=== PATIENT | female | born 1975 | race Asian ===

== ENCOUNTER 2024-09-08 00:57 | Emergency (ER) | payer MEDICAID, SELFPAY ==
[2024-09-08 01:01] VITALS: BMI 26.9
[2024-09-08 01:17] VITALS: BP 113/70; PULSE 92; RESP 20; TEMP 37.4; O2SAT 98
--- NOTE | 2024-09-08 01:35 | EDNOTE_ITS ---
ED SOB =RME/HPI General Chief Complaint: Shortness of Breath/Dyspnea Stated Complaint: SOB, COUGH, CHEST PAIN Time Seen by Provider: 09/08/24 01:16 Arrival date/time: 09/08/24 00:57 RME / HPI RME / HPI Narrative: 49-year-old female presents to the ED with a complaint of cough and shortness of breath. She was seen at [facility] on the and prescribed Tessalon Perles. She does not feel like she is improving. Related Data Previous Rx's ?Medication ?Instructions ?Recorded ondansetron 4 mg disintegrating 4 mg PO Q6HR PRN NAUSE A OR 04/04/17 tablet (Zofran ODT) VOMITING #14 tabs albuterol sulfate 90 mcg/actuation 2 inh inhalation Q4 H PRN shortness 09/08/24 aerosol inhaler of breath or wheezing #8.5 g annette azithromycin 250 mg tablet See Rx Instructions PO .COM PLEX #6 09/08/24 (Zithromax Z-Sherif) tabs promethazine-DM 6.25 mg-15 mg/5 mL 10 ml PO Q6H PRN co ugh #118 mL 09/08/24 oral syrup Allergies Allergy/AdvReac Type Severity Reaction Status Date / Time codeine AdvReac Unknown BLACKOUT Verified 09/08/24 01:07 morphine AdvReac Unknown NAUSEA, Verified 09/08/24 01:07 BLACKOUT PAIN KILLERS AdvReac Unknown BLACKOUT Uncoded 09/08/24 01:07 Course Quality Measures none Orders Category Date Time Status XR chest 2V Stat Exams 09/08/24 01:35 Taken Albuterol/Ipratr Rt Xochitl [Duoneb Rt Xochitl] Med 09/08/24 01:35 Discontinued 3 ml INH X1 ONE Dexamethasone Inj [Decadron Inj] Med 09/08/24 01:35 Discontinued 10 mg PO X1 ONE Vital Signs Vital signs: Vital Signs Temperature 99.4 F 09/08/24 01:17 Pulse Rate 92 09/08/24 01:17 Respiratory Rate 20 09/08/24 01:17 Blood Pressure 113/70 09/08/24 01:17 Pulse Oximetry (%) 98 09/08/24 01:17 Oxygen Delivery Method Room Air 09/08/24 01:17 Shortness of Breath / Dyspnea Patient data External records reviewed:: None Clinical information provided by:: patient Social determinants that could affect healthcare access:: none Patient has the following chronic illnesses:: N/A How is presenting disease/condition affected by chronic disease/condition?: no chronic disease Evaluation data The following diagnostics were reviewed and interpreted by me:: radiology exam(s) Lab and/or radiology exams considered but not ordered:: N/A Interpretation Summary: Increased peribronchial markings. Medications / Prescriptions Medications or Prescriptions considered but not ordered:: N/A Medication administrations:: Medication Administration History Discontinued Medications Albuterol/Ipratropium (Albuterol/Ipratropium (Duoneb) Rt Xochitl 3 Ml Nebu) 3 ml INH X1 ONE Stop: 09/08/24 01:36 Last Admin: 09/08/24 02:14 Dose: 3 ml Documented By: PADILLA Dexamethasone Sodium Phosphate (Dexamethasone Sod Phos Inj 10 Mg/Ml Vial) 10 mg PO X1 ONE Stop: 09/08/24 01:36 Last Admin: 09/08/24 02:16 Dose: 10 mg Documented By: JUAN Comments: GIVEN PO DuoNeb, dexamethasone 10 mg p.o. Consultations Consultation(s) initiated? (list below): No Diagnosis Shortness of Breath Differential Diagnosis: acute exacerbation of chronic obstructive airways disease, congestive heart failure, community acquired pneumonia and asthma with exacerbation Most likely diagnosis given after review of the tests above:: Asthmatic bronchitis Admission Indicated Admission indicated?: not indicated Admission Request Was there a request for admission?: No Disposition Plan Disposition Plan: Discharge Discharge Attestation Discharge Attestation: The patient and all family members were given an opportunity to ask questions and understood the discharge instructions. Discharge instructions specifically effects, indications for sooner follow up or return to the emergency department, and the expected course of current diagnosis. Patient condition: Stable Discharge Plan Plan Patient Disposition: HOME (Self Care) Discharge Disposition comment: Stable and improved Prescriptions/Referrals Prescriptions/Med Rec: New azithromycin [Zithromax Z-Sherif] 250 mg tablet See Rx Instructions .ROUTE .COMPLEX Qty: 6 0RF Rx Instructions: For 250 mg dose pack: take 500 mg today (day 1), then 250 mg for 4 days (days 2-5) albuterol sulfate 90 mcg/actuation HFA aerosol inhaler 2 inh inhalation Q4H PRN (Reason: shortness of breath or wheezing) Qty: 8.5 0RF promethazine-DM 6.25-15 mg/5 mL syrup 10 ml PO Q6H PRN (Reason: cough) Qty: 118 0RF No Action ondansetron [Zofran ODT] 4 MG/UDTABLET tablet,disintegrating 4 mg PO Q6HR PRN (Reason: NAUSEA OR VOMITING) Qty: 14 0RF Problem List Clinical Impression: Asthmatic bronchitis Patient/Caregiver Discharge Instructions Education Materials: Acute Bronchitis, Asthma Additional Instructions: Take your antibiotics as prescribed and complete the course even though you may be feeling better. Use the inhaler to help with the spasmodic coughing. Also use the cough medication to help control your cough so he can get some rest at bedtime. Follow-up with your primary care physician in 24 to 48 hours. Return to the ED for any new or worsening symptoms. Print Language: Vietnamese Stand Alone Forms: Estephanie Award Info., Patient Portal Info Letter PA/DWIGHT Supervising Physician PA/DWIGHT Supervising Physician: Dr Murrell
--- NOTE | 2024-09-08 01:35 | XR_ITS ---
Examination: PA lateral chest 2 views TECHNIQUE: Upright PA lateral chest 2 views Date and time: September 08, 2024 0140 hours Comparison December 10, 2009 INDICATIONS: Coughing 6 days with shortness of breath today. FINDINGS: Accentuation of the bronchovascular markings. Normal heart size. No lobar pneumonia. IMPRESSION: Bronchitis pattern
[2024-09-08 02:14] VITALS: PULSE 71; RESP 18; O2SAT 99
[2024-09-08] MEDS: ALBUTEROL/IPRATROPIUM (Duoneb) RT SOL 3 ML NEBU INH (02:14)
[2024-09-08] MEDS: DEXAMETHASONE SOD PHOS INJ 10 MG/ML VIAL PO (02:16)
== END 2024-09-08 03:30 | disposition home or self-care (01) ==
LOC: SERX 03:12
PROVIDERS: Emergency Provider Emergency Medicine; PCP Family Medicine
DX: J45.909 Unspecified asthma, uncomplicated (principal)
CPT/HCPCS: 71046; 94640; 99283; A9270; J1100

== ENCOUNTER 2024-11-08 07:18 | Emergency (ER) | payer MEDICAID, SELFPAY ==
[2024-11-08 07:21] VITALS: BP 113/64; PULSE 85; RESP 16; TEMP 36.8; O2SAT 95
--- NOTE | 2024-11-08 07:21 | PD.EDLOWEX ---
Lower Extremity Injury RME/HPI General Chief Complaint: Extremity Injury, Lower Stated Complaint: RIGHT KNEE PAIN X AM W/HX DISLOCATION Time Seen by Provider: 11/08/24 07:23 Arrival date/time: 11/08/24 07:18 Limitations: no limitations RME / HPI RME / HPI Narrative: DR. FATIMAH STEPHENS ED EVALUATION: 49-year-old female with past medical history of diabetes mellitus and right knee dislocation (multiple times unsure if actual dislocation or just popping) presents to the Emergency Department BIB with complaint of right knee pain after it reportedly ?popped? while she was walking down the stairs this morning. Per EMS, the patient has a history of frequent visits for the same right knee issue. She reports immediate pain following the incident. No reported trauma aside from the stair descent. Related Data Previous Rx's ?Medication ?Instructions ?Recorded ondansetron 4 mg disintegrating 4 mg PO Q6HR PRN NAUSEA OR 04/04/17 tablet (Zofran ODT) VOMITING #14 tabs albuterol sulfate 90 mcg/actuation 2 inh inhalation Q4H PRN shortness 09/08/24 aerosol inhaler of breath or wheezing #8.5 grams azithromycin 250 mg tablet See Rx Instructions PO .COMPLEX #6 09/08/24 (Zithromax Z-Sherif) tabs promethazine-DM 6.25 mg-15 mg/5 mL 10 ml PO Q6H PRN cough #118 mL 09/08/24 oral syrup Allergies Allergy/AdvReac Type Severity Reaction Status Date / Time codeine AdvReac Unknown BLACKOUT Verified 11/08/24 07:27 morphine AdvReac Unknown NAUSEA, Verified 11/08/24 07:27 BLACKOUT PAIN KILLERS AdvReac Unknown BLACKOUT Uncoded 11/08/24 07:27 Review of Systems Review of Systems Systems Reviewed: All systems reviewed, normal except as documented Past Medical History Social History SMOKING STATUS: Never smoker SUBSTANCE USE: does not use ALCOHOL: Never Past Medical History Comments PMH COMMENT: Diabetes mellitus and right knee dislocation (multiple times unsure if actual dislocation or just popping). ED Exam General Limitations: Present no limitations General appearance: Present alert and in no apparent distress Head Head exam: Present atraumatic, normocephalic and normal inspection Eye Eye exam: Present normal appearance, PERRL and EOMI ENT ENT exam: Present normal exam, normal oropharynx and mucous membranes moist Neck Neck exam: Present normal inspection, full ROM and trachea midline Chest Chest inspection: Present normal inspection and symmetric chest wall rise Respiratory Respiratory exam: Present normal lung sounds bilaterally Cardiovascular Cardiovascular exam: Present regular rate, normal rhythm and normal heart sounds Abdominal Exam Abdominal exam: Present soft and normal bowel sounds Extremities Exam Extremities exam: Present tenderness (tenderness on palpation of medial and lateral aspect of the right knee, but no swelling or redness) Back Exam Back exam: Present normal inspection and full ROM Neurological Exam Neurological exam: Present alert, oriented X3 and CN II-XII intact Psychiatric Psychiatric exam: Present normal affect and normal mood Skin Skin exam: Present warm, dry, intact and normal color Course Quality Measures none Orders Category Date Time Status Apply knee immobilizer NOW Care 11/08/24 07:24 Active XR knee comp RT 4V Stat Exams 11/08/24 07:24 Completed Acetaminophen Tab [Tylenol ES Tab] Med 11/08/24 07:24 Discontinued 500 mg PO X1 ONE Vital Signs Vital signs: Vital Signs Temperature 98.2 F 11/08/24 07:21 Pulse Rate 85 11/08/24 07:21 Respiratory Rate 16 11/08/24 07:21 Blood Pressure 113/64 11/08/24 07:21 Pulse Oximetry (%) 95 11/08/24 07:21 Oxygen Delivery Method Room Air 11/08/24 07:21 Extremity Injury, Lower MDM Narrative MDM Narrative:: Patient is a 49-year-old female with medical history notable for diabetes, hypothyroidism with an emergency department concerns for right knee pain. Vital signs and exam as listed. Concern for fracture dislocation soft tissue injury. Ordered x-ray, knee immobilizer as well as offered medication for symptom relief. Given patient's recurrent episodes of knee pain I advised her that it is important that she follow-up with an orthopedic surgeon for further workup and evaluation. Provided patient with a knee immobilizer to help with stability and mobility. X-ray without any evidence of any acute injuries, no fracture or dislocation. On my read I do appreciate degenerative changes. On reevaluation patient hemodynamically stable nondistressed will discharge home close precautions follow-up with primary care doctor. All questions answered Karen Colin am scribing for and in the presence of Dr. Rodarte. 11/08/24 7:25 am Karen Fry Patient data External records reviewed:: [facility] previous records and EMS form Clinical information provided by:: patient and EMS Social determinants that could affect healthcare access:: none Patient has the following chronic illnesses:: Diabetes mellitus and right knee dislocation (multiple times unsure if actual dislocation or just popping). How is presenting disease/condition affected by chronic disease/condition?: exacerbated by Evaluation data The following diagnostics were reviewed and interpreted by me:: radiology exam(s) Lab and/or radiology exams considered but not ordered:: none Interpretation Summary: X-ray with degenerative changes Medications / Prescriptions Medications or Prescriptions considered but not ordered:: none Medication administrations:: Medication Administration History Discontinued Medications Acetaminophen (Acetaminophen 500 Mg Tablet) 500 mg PO X1 ONE Stop: 11/08/24 07:25 Last Admin: 11/08/24 07:35 Dose: 500 mg Documented By: RAN see above Consultations Consultation(s) initiated? (list below): No Diagnosis Extremity Injury, Lower Differential Diagnosis: other (Recurrent patellar dislocation, ligamentous instability (e.g., ACL/MCL injury), and osteoarthritis with joint degeneration.) Most likely diagnosis given after review of the tests above:: Right knee arthritis, right knee pain Admission Indicated Admission indicated?: not indicated Admission Request Was there a request for admission?: No Disposition Plan Disposition Plan: Discharge Discharge Attestation Discharge Attestation: The patient and all family members were given an opportunity to ask questions and understood the discharge instructions. Discharge instructions specifically effects, indications for sooner follow up or return to the emergency department, and the expected course of current diagnosis. Patient condition: Stable Discharge Plan Plan Patient Disposition: HOME (Self Care) Prescriptions/Referrals Prescriptions/Med Rec: No Action ondansetron [Zofran ODT] 4 MG/UDTABLET tablet,disintegrating 4 mg PO Q6HR PRN (Reason: NAUSEA OR VOMITING) Qty: 14 0RF azithromycin [Zithromax Z-Sherif] 250 mg tablet See Rx Instructions .ROUTE .COMPLEX Qty: 6 0RF Rx Instructions: For 250 mg dose pack: take 500 mg today (day 1), then 250 mg for 4 days (days 2-5) albuterol sulfate 90 mcg/actuation HFA aerosol inhaler 2 inh inhalation Q4H PRN (Reason: shortness of breath or wheezing) Qty: 8.5 0RF promethazine-DM 6.25-15 mg/5 mL syrup 10 ml PO Q6H PRN (Reason: cough) Qty: 118 0RF Problem List Clinical Impression: Chronic knee pain Patient/Caregiver Discharge Instructions Education Materials: ED ALEJANDRA Wrap, ED RICE Additional Instructions: Given your recurrent episodes of knee pain I highly recommend that you be evaluated by an orthopedic surgeon. Please wear your knee brace while out of bed and not in the shower. Your x-ray did not show any fracture or dislocation however it does show degenerative changes. Print Language: [place] Korean Stand Alone Forms: Estephanie Award Info., Patient Portal Info Letter
[2024-11-08 07:22] VITALS: PULSE 90; RESP 18
--- NOTE | 2024-11-08 07:24 | XR_ITS ---
Examination: Right knee 4 views Technique: AP oblique lateral axial right knee 4 views Date and time: November 08, 2024, 0747 hrs. Indications: Patient felt a pop in the knee last night followed by pain. Findings: No acute fracture. Small knee effusion. No patellar dislocation Impression: No acute fracture.
[2024-11-08] MEDS: ACETAMINOPHEN 500 MG TABLET PO (07:35)
[2024-11-08 07:36] VITALS: BMI 26.9
--- NOTE | 2024-11-08 07:39 | PC.NURSE ---
KNEE IMMOBILIZER APPLIED TO PT'S R KNEE AT THIS TIME.
[2024-11-08 09:47] VITALS: BP 106/69; PULSE 66; RESP 18; TEMP 36.7; O2SAT 97
== END 2024-11-08 10:07 | disposition home or self-care (01) ==
LOC: SERX 07:42
PROVIDERS: Emergency Provider Emergency Medicine; PCP Family Medicine
DX: M25.561 Pain in right knee (principal); G89.29 Other chronic pain
CPT/HCPCS: 73564; 99284; A9270

== ENCOUNTER 2024-12-30 06:38 | Emergency (ER) | payer MEDICAID, SELFPAY ==
[2024-12-30 06:46] VITALS: PULSE 58; O2SAT 96; BMI 28.7
[2024-12-30 06:55] VITALS: BP 121/85; PULSE 73; RESP 19; TEMP 36.9; O2SAT 97
--- NOTE | 2024-12-30 07:02 | XR_ITS ---
Examination: CT lumbar spine without intravenous contrast, 2-D sagittal reconstructions. 2-D coronal reconstructions. 3-D reconstructions. Date and time of exam:December 30, 2024 0853 hours INDICATIONS: Patient fell today with injury to lower back, lower back pain. CTDI: vol (mGy):15.4 DLP: (mGycm):400 Technique: Multiple 1.25 mm axial sections of the lumbar spine without intravenous contrast have been obtained. 2-D sagittal and coronal reconstructions have been obtained. 3-D reconstructions have been obtained. Low dose protocols were performed. One or more of the following dose reduction techniques were used; automated exposure control, adjustment of the mA and/or KV according to patient size, use of iterative reconstruction technique. Findings: Adequate alignment lumbar vertebral bodies on the lateral view No lumbar fracture No spondylolisthesis Lumbar pedicles, laminae, transverse and posterior spinous processes intact L5-S1 6 mm calcified left paracentral subarticular disc bulge IMPRESSION: No lumbar fracture L5-S1 6 mm calcified left paracentral subarticular disc bulge
--- NOTE | 2024-12-30 07:02 | XR_ITS ---
Examination: CT pelvis without intravenous contrast. 2-D sagittal and coronal reconstructions. Date and time of exam:December 30, 2024 0853 hours INDICATIONS: Patient fell today with injury to both hips, bilateral hip pain CTDI: vol (mGy) :7.08 DLP: (mGycm) : 187 Technique: Multiple 3 mm axial sections of the pelvis have been obtained with the 64 slice high resolution scanner. 2-D sagittal and coronal reconstructions. Low dose protocols were performed. One or more of the following dose reduction techniques were used; automated exposure control, adjustment of the mA and/or KV according to patient size, use of iterative reconstruction technique. Findings: No pelvic hematoma Urinary bladder intact Sacral segments and iliac bones including acetabular regions anterior rami intact Hips intact IMPRESSION: No acute hip or pelvic fracture
[2024-12-30] MEDS: DIAZEPAM 5 MG TABLET PO (07:33)
[2024-12-30] MEDS: KETOROLAC INJ 30 MG/ML VIAL IM (07:33)
--- NOTE | 2024-12-30 09:55 | EDNOTE_ITS ---
<Statement entered by Zenia Lilly MD - 01/18/25 06:06> As co-signing physician, I was present and available for consult prn. I concur with the plan and care as documented by the midlevel provider. ED Back Injury Pain RME/HPI General Chief Complaint: Back Pain/Injury Stated Complaint: BACK PAIN S/P FALL Time Seen by Provider: 12/30/24 07:01 Arrival date/time: 12/30/24 06:38 49-year-old female presents to the emergency department today for complaints of lower back pain status post fall approximately 1 week ago patient reports no saddle anesthesia no loss of bowel or bladder patient reports no fever nausea or vomiting Limitations: no limitations Related Data Previous Rx's ?Medication ?Instructions ?Recorded ondansetron 4 mg disintegrating 4 mg PO Q6HR PRN NAUSE A OR 04/04/17 tablet (Zofran ODT) VOMITING #14 tabs albuterol sulfate 90 mcg/actuation 2 inh inhalation Q4 H PRN shortness 09/08/24 aerosol inhaler of breath or wheezing #8.5 g annette azithromycin 250 mg tablet See Rx Instructions PO .COM PLEX #6 09/08/24 (Zithromax Z-Sherif) tabs promethazine-DM 6.25 mg-15 mg/5 mL 10 ml PO Q6H PRN co ugh #118 mL 09/08/24 oral syrup cyclobenzaprine 10 mg tablet 10 mg PO TID PRN muscle s pasm 10 12/30/24 days #30 tab-caps ibuprofen 600 mg tablet 600 mg PO Q6H #30 tabs 12/30 Allergies Allergy/AdvReac Type Severity Reaction Status Date / Time codeine AdvReac Unknown BLACKOUT Verified 11/08/24 07:27 morphine AdvReac Unknown NAUSEA, Verified 11/08/24 07:27 BLACKOUT PAIN KILLERS AdvReac Unknown BLACKOUT Uncoded 11/08/24 07:27 Review of Systems Review of Systems Systems Reviewed: All systems reviewed, normal except as documented Constitutional Constitutional: Reports system reviewed and no additional complaints, except as documented, Denies fever(s) and Denies headache(s) Eyes Eyes: Reports system reviewed and no additional complaints, except as documented and Denies blurry vision ENT Ears, Nose, Mouth, and Throat: Reports system reviewed and no additional complaints, except as documented, Denies headache(s), Denies nasal congestion and Denies nasal discharge Cardiovascular Cardiovascular: Reports system reviewed and no additional complaints, except as documented, Denies chest pain and Denies dyspnea Respiratory Respiratory: Reports system reviewed and no additional complaints, except as documented, Denies chest congestion, Denies cough and Denies dyspnea Gastrointestinal Gastrointestinal: Reports system reviewed and no additional complaints, except as documented and Denies abdominal pain Musculoskeletal Musculoskeletal: Reports system reviewed and no additional complaints, except as documented and Reports back pain Integumentary/Breasts Skin/Breast: Reports system reviewed and no additional complaints, except as documented and Denies rash Neurologic Neurologic: Reports system reviewed and no additional complaints, except as documented, Reports as per HPI and Denies headache(s) Past Medical History Social History SMOKING STATUS: Never smoker SUBSTANCE USE: does not use ED Exam General Limitations: Present no limitations General appearance: Present alert and in no apparent distress Head Head exam: Present atraumatic, normocephalic and normal inspection Eye Eye exam: Present normal appearance, PERRL and EOMI; Absent conjunctival injection ENT ENT exam: Present normal exam, normal oropharynx and mucous membranes moist Neck Neck exam: Present normal inspection, full ROM and trachea midline Chest Chest inspection: Present normal inspection and symmetric chest wall rise Respiratory Respiratory exam: Present normal lung sounds bilaterally Cardiovascular Cardiovascular exam: Present regular rate, normal rhythm and normal heart sounds Abdominal Exam Abdominal exam: Present soft and normal bowel sounds; Absent distention, tenderness, guarding, rebound or rigidity Extremities Exam Extremities exam: Present normal inspection and full ROM Back Exam Back exam: Present normal inspection, full ROM, tenderness, muscle spasm and paraspinal tenderness; Absent CVA tenderness (R) or CVA tenderness (L) Neurological Exam Neurological exam: Present alert, oriented X3 and CN II-XII intact Psychiatric Psychiatric exam: Present normal affect and normal mood Skin Skin exam: Present warm, dry, intact and normal color Course Quality Measures none Orders Category Date Time Status CT lumbar spine wo con Stat Exams 12/30/24 07:[address] pelvis wo con Stat Exams 12/30/24 07:02 Completed Diazepam [Valium] Med 12/30/24 07:02 Discontinued 5 mg PO X1 ONE Ketorolac Inj [Toradol Inj] Med 12/30/24 07:02 Discontinued 30 mg IM X1 ONE Vital Signs Vital signs: Vital Signs Temperature 98.5 F 12/30/24 06:55 Pulse Rate 73 12/30/24 06:55 Respiratory Rate 19 12/30/24 06:55 Blood Pressure 121/85 H 12/30/24 06:55 Pulse Oximetry (%) 97 12/30/24 06:55 Oxygen Delivery Method Room Air 12/30/24 06:55 O2 saturation 97% room air within normal limits Back Pain / Injury MDM Narrative MDM Narrative:: 49-year-old female presents to the emergency department today for complaints of lower back pain status post fall approximately 1 week ago patient reports no saddle anesthesia no loss of bowel or bladder patient reports no fever nausea or vomiting On exam patient well-appearing patient does not appear toxic and in no acute distress Imaging obtained no acute emergent findings noted Patient given pain medication which improved symptoms Patient reports that she will walk home Patient discharged home in no distress to follow-up with primary care doctor in the next 24 to 48 hours and for any worsening symptoms to return to the ER immediately Patient data External records reviewed:: [facility] previous records Clinical information provided by:: patient Social determinants that could affect healthcare access:: none Patient has the following chronic illnesses:: See history How is presenting disease/condition affected by chronic disease/condition?: uneffected by Evaluation data The following diagnostics were reviewed and interpreted by me:: radiology exam(s) Lab and/or radiology exams considered but not ordered:: Radiology obtained Interpretation Summary: Reviewed by me Medications / Prescriptions Medications or Prescriptions considered but not ordered:: Given Medication administrations:: Medication Administration History Discontinued Medications Diazepam (Diazepam 5 Mg Tablet) 5 mg PO X1 ONE Stop: 12/30/24 07:03 Last Admin: 12/30/24 07:33 Dose: 5 mg Documented By: SHERIF Ketorolac Tromethamine (Ketorolac Inj 30 Mg/Ml Vial) 30 mg IM X1 ONE Stop: 12/30/24 07:03 Last Admin: 12/30/24 07:33 Dose: 30 mg Documented By: SHERIF Given Consultations Consultation(s) initiated? (list below): No Diagnosis Differential diagnosis back pain/injury: lumbar radiculopathy, sciatica and strain of lumbar region Most likely diagnosis given after review of the tests above:: Back pain Admission Indicated Admission indicated?: not indicated Admission Request Was there a request for admission?: No Disposition Plan Disposition Plan: Discharge Discharge Attestation Discharge Attestation: The patient and all family members were given an opportunity to ask questions and understood the discharge instructions. Discharge instructions specifically effects, indications for sooner follow up or return to the emergency department, and the expected course of current diagnosis. Patient condition: Stable Discharge Plan Plan Patient Disposition: HOME (Self Care) Discharge Disposition comment: Stable Prescriptions/Referrals Prescriptions/Med Rec: New cyclobenzaprine 10 mg tablet 10 mg PO TID PRN (Reason: muscle spasm) 10 Days Qty: 30 0RF ibuprofen 600 mg tablet 600 mg PO Q6H Qty: 30 0RF No Action ondansetron [Zofran ODT] 4 MG/UDTABLET tablet,disintegrating 4 mg PO Q6HR PRN (Reason: NAUSEA OR VOMITING) Qty: 14 0RF azithromycin [Zithromax Z-Sherif] 250 mg tablet See Rx Instructions .ROUTE .COMPLEX Qty: 6 0RF Rx Instructions: For 250 mg dose pack: take 500 mg today (day 1), then 250 mg for 4 days (days 2-5) albuterol sulfate 90 mcg/actuation HFA aerosol inhaler 2 inh inhalation Q4H PRN (Reason: shortness of breath or wheezing) Qty: 8.5 0RF promethazine-DM 6.25-15 mg/5 mL syrup 10 ml PO Q6H PRN (Reason: cough) Qty: 118 0RF Referrals: Néstor Champion PA-C [Primary Care Provider] - 12/31/24 Problem List Clinical Impression: Bulging lumbar disc Patient/Caregiver Discharge Instructions Education Materials: Back Safety: Turning Additional Instructions: Please follow up with your primary care doctor in the next 24-48hrs for any worsening symptoms return here immediately Print Language: Kinyarwanda Stand Alone Forms: [place] Award Info., Work/School Release, Patient Portal Info Letter LAWRENCE/DWIGHT Supervising Physician LAWRENCE/DWIGHT Supervising Physician: Dr. lilly
== END 2024-12-30 10:05 | disposition home or self-care (01) ==
PROVIDERS: Emergency Provider Emergency Medicine; PCP Physician Assistant
DX: M51.360 Other intervertebral disc degeneration, lumbar region with discogenic back pain only (principal)
CPT/HCPCS: 72131; 72192; 96372; 99283; J1885; A9270